=== PATIENT | female | born 1985 | race African-American/Black ===

== ENCOUNTER 2017-02-03 17:40 | Emergency (ER) | payer MEDICAID ==
[~2017-02-03] VITALS: Ht 170.2 cm; Wt 88.0 kg
[~2017-02-03 17:40] MED LIST: seroquel
[2017-02-03 22:22] LABS: CLARITY URINE CLOUDY (CLEAR); COLOR URINE YELLOW (YELLOW); GLUCOSE URINE NEGATIVE (NEGATIVE); KETONES URINE NEGATIVE (NEGATIVE); LEUKOCYTE ESTERASE URINE 2+ (NEGATIVE); NITRITE URINE NEGATIVE (NEGATIVE); OCCULT BLOOD URINE NEGATIVE (NEGATIVE); PROTEIN URINE NEGATIVE (NEGATIVE); SPECIFIC GRAVITY URINE 1.025 (1.005-1.030); UROBILINOGEN URINE 0.2 E.U./dL (0.2-1.0)
[2017-02-04 00:42] VITALS: BP 113/55
== END 2017-02-04 00:42 | disposition home or self-care (01) ==
LOC: ER 17:40
DX: N39.0 Urinary tract infection, site not specified (principal); F12.10 Cannabis abuse, uncomplicated
CPT/HCPCS: 81001; 81025; 99283

== ENCOUNTER 2023-05-31 18:55 | Emergency (ER) | payer MEDICAID ==
[~2023-05-31] VITALS: Ht 167.6 cm; Wt 81.0 kg
[2023-05-31] MEDS ORDERED: SODIUM CHLORIDE 0.9% 1,000 ML IV ONE (19:00)
[2023-05-31] MEDS ORDERED: ONDANSETRON HCL 4MG/2ML INJ IV ONE (19:00)
[2023-05-31 19:05] VITALS: BP 133/81; PULSE 78; RESP 20; TEMP 98.8; O2SAT 97
[2023-05-31] MEDS ORDERED: BUPRENORPHINE 8MG SL TABLET SL ONE (19:15)
[2023-05-31 19:37] LABS: BASOPHILS % 0.6 % (0.0-2.0); EOSINOPHILS % 0.1 % (0.0-5.0); HEMATOCRIT. 40.2 % (36.0-48.0); HEMOGLOBIN. 13.5 g/dL (12.0-16.0); LYMPHOCYTES % 24.6 % (20.0-50.0); MEAN CORPUSCULAR HEMOGLOBIN 30.1 pg (28.0-32.0); MEAN CORPUSCULAR HGB CONC 33.7 g/dL (31.0-37.0); MEAN CORPUSCULAR VOLUME 89.3 fL (81.0-99.0); MEAN PLATELET VOLUME 9.9 fl (7.4-10.4); MONOCYTES % 7.2 % (2.0-8.0); NEUTROPHILS % 67.5 % (40.0-76.0); PLATELET 212 x1000/uL (130-400); RED CELL DISTRIBUTION WIDTH 13.3 % (11.6-14.6); WHITE BLOOD COUNT 9.3 x1000/uL (4.5-11.0)
[2023-05-31 19:39] LABS: DIFFERENTIAL COMMENT 1
[2023-05-31 20:01] LABS: ALANINE AMINOTRANSFERASE 15 IU/L (10-49); ALBUMIN 4.5 g/dL (3.2-4.8); ASPARTATE AMINOTRANSFERASE 17 IU/L (<34); BILIRUBIN TOTAL 0.6 mg/dL (0.1-1.0); CARBON DIOXIDE 27 mEq/L (21-32); CHLORIDE 105 mEq/L (98-107); CREATININE 0.9 mg/dL (0.6-1.0); GLUCOSE 92 mg/dL (70-105); POTASSIUM 3.3 mEq/L (3.5-5.1); SODIUM 141 mEq/L (136-145); TROPONIN I HIGH SENSITIVITY 4 ng/L (3.0-34); UREA NITROGEN BLOOD 10 mg/dL (9-23)
[2023-05-31] MEDS ORDERED: ONDA4TAB50 MT (20:59)
[2023-05-31] MEDS ORDERED: BUPR1FIL3 SL (20:59)
== END 2023-05-31 23:09 | disposition home or self-care (01) ==
LOC: ER 18:55
DX: R11.2 Nausea with vomiting, unspecified (principal); F12.90 Cannabis use, unspecified, uncomplicated
CPT/HCPCS: 80053; 83880; 85025; 84484; 36415; 71045; 99284; Z7610; J7030

== ENCOUNTER 2025-01-13 20:13 | Emergency (ER) | payer OTHER, MEDICAID ==
[~2025-01-13] VITALS: Ht 167.6 cm; Wt 82.0 kg
[~2025-01-13 20:13] MED LIST changes: +ONDA4TAB50 MT
[2025-01-13 20:17] VITALS: BP 147/83; PULSE 89; RESP 18; TEMP 36.9; O2SAT 97
== END 2025-01-13 22:35 | disposition left against medical advice (07) ==
LOC: ER 20:13
DX: S00.12XA Contusion of left eyelid and periocular area, initial encounter (principal); M79.662 Pain in left lower leg; M79.661 Pain in right lower leg; V89.2XXA Person injured in unspecified motor-vehicle accident, traffic, initial encounter; Y93.89 Activity, other specified; Y92.89 Other specified places as the place of occurrence of the external cause; Y99.8 Other external cause status
CPT/HCPCS: 99281